=== PATIENT | female | born 1995 | race Caucasian/White ===

== ENCOUNTER 2016-07-04 08:10 | Emergency (ER) | payer BC | END 2016-07-04 09:07 | disposition home or self-care (01) | LOC: ER 08:10 | DX: L23.7 Allergic contact dermatitis due to plants, except food (principal); K21.9 Gastro-esophageal reflux disease without esophagitis; Z88.8 Allergy status to other drugs, medicaments and biological substances | CPT/HCPCS: 96372; 99283 ==